=== PATIENT | male | born 1940 | race African-American/Black ===

== ENCOUNTER 2020-09-23 20:20 | Inpatient (IN) | payer OTHER ==
[2020-09-23 23:41] LABS: BASO % 0.3 % (0-2.0); EOS % 0.1 % (0-4.5); HEMATOCRIT 41.5 % (35.4-49); HEMOGLOBIN 13.4 GM/dL (11.7-16.9); LYMPH % 7.2 % (8-40); MCH 20.7 pg (25.7-33.7); MCHC 32.2 g/dl (32.0-35.9); MEAN CELL VOLUME 64.3 fl (80-96); MEAN PLT VOLUME 9.6 fl (7.5-11.1); MONO % 9.8 % (3.8-10.2); NEUT % 82.6 % (42.8-82.8); RBC 6.45 M/mm3 (4.00-5.60); RDW 20.8 % (11.9-15.9); WHITE BLOOD COUNT 7.1 K/mm3 (4.0-10.0)
[2020-09-23 23:43] LABS: VENOUS BASE EXCESS -5.7 mmol/L (-2-2); VENOUS O2 SATURATION 61.1 % (70-80); VENOUS PCO2 36.9 mmHg (38-52); VENOUS PH 7.339 (7.310-7.410)
[2020-09-23 23:49] LABS: INR 1.2 (0.83-1.09); PROTHROMBIN TIME (PATIENT) 14.7 SEC (9.7-13.0)
[2020-09-23 23:52] LABS: ACTIVATED PTT 27.6 SECONDS (25.2-36.5)
[2020-09-24 00:10] LABS: CHLORIDE 103 mmol/L (98-107); POTASSIUM 4.2 mmol/L (3.5-5.1); SODIUM 135 mmol/L (136-145)
[2020-09-24 00:12] LABS: CALCIUM 8.8 mg/dL (8.5-10.1)
[2020-09-24 00:13] LABS: ALBUMIN 3.2 g/dl (3.4-5.0); ANION GAP 11 MMOL/L (8-16); BLOOD UREA NITROGEN 33.7 mg/dL (7-18); CO2 21 mmol/L (21-32); GLUCOSE,RANDOM 162 mg/dL (74-106)
[2020-09-24 00:16] LABS: BILIRUBIN,DIRECT 0.5 mg/dL (0.0-0.2); CREATININE 1.6 mg/dL (0.55-1.3); SGOT/AST 70 U/L (15-37); SGPT/ALT 51 U/L (13-61)
[2020-09-24 00:17] LABS: BILIRUBIN,TOTAL 0.9 mg/dL (0.2-1); LDH 434 U/L (87-246)
[2020-09-24 00:19] LABS: ALK PHOS 112 U/L (45-117)
[2020-09-24] MEDS ORDERED: SODIUM CHLORIDE 0.9% 500 ML INFUS.BAG IV ONE ×2 (00:22→02:32)
[2020-09-24] MEDS ORDERED: DEXAMETHASONE SOD PHOSPHATE 10 MG/1 ML VIAL IVPUSH ONE (00:38)
[2020-09-24 00:43] LABS: ANISOCYTOSIS 2+; MACROCYTOSIS 0; OVALOCYTE 2+; PLATELET ESTIMATE NORMAL
[2020-09-24] MEDS ORDERED: DEXAMETHASONE SOD PHOSPHATE 10 MG/1 ML VIAL ONE (01:09)
[2020-09-24 01:15] LABS: PLATELET COUNT 236 K/MM3 (134-434)
[2020-09-24 03:05] LABS: EPI CELLS 34 /uL (0-25.1); HYALINE CASTS 3 /uL (0-3.1); URINE APPEARANCE CLOUDY; URINE BACTERIA 46 /uL (0-1359); URINE BILIRUBIN 1+ (NEGATIVE); URINE COLOR DK YELLOW; URINE GLUCOSE (UA) NEGATIVE (NEGATIVE); URINE KETONE TRACE (NEGATIVE); URINE LEUK ESTERASE 1+ (NEGATIVE); URINE NITRITE NEGATIVE (NEGATIVE); URINE PROTEIN 2+ (NEGATIVE); URINE RBC 23 /uL (0-23.9); URINE WBC 103 /uL (0-25.8)
[2020-09-24] MEDS ORDERED: AZITHROMYCIN IVPB 500 MG in DEXTROSE 5%-WATER - 250 ML IVPB ONE (09:57)
[2020-09-24] MEDS ORDERED: ACETAMINOPHEN 325 MG TABLET (FP) PO PRN (09:58)
[2020-09-24] MEDS ORDERED: ALBUTEROL SO4 HFA INHALER IH PRN (09:58)
[2020-09-24] MEDS ORDERED: AZITHROMYCIN IVPB 500 MG/250 ML BAG IVPB ONE (10:39)
[2020-09-24] MEDS: ASPIRIN 81 MG CHEWABLE TABLETS PO SCH (11:58)
[2020-09-24] MEDS: POLYETHYLENE GLYCOL 3350 119 GM BTL PO SCH (11:59)
[2020-09-24] MEDS: CHOLECALCIFEROL (VIT D3) 1,000 UNIT (25 MCG) TABLET PO SCH (11:59)
[2020-09-24] MEDS: TAMSULOSIN HCL 0.4 MG CAP PO SCH (11:59)
[2020-09-24] MEDS: PANTOPRAZOLE 40 MG TABLET PO SCH (11:59)
[2020-09-24] MEDS: LOSARTAN POTASSIUM 25 MG TABLET PO SCH (11:59)
[2020-09-24] MEDS: amLODIPine BESYLATE 5 MG TABLET (FP) PO SCH (11:59)
[2020-09-24] MEDS: DEXAMETHASONE SOD PHOSPHATE 4 MG/1 ML VIAL IVPUSH SCH ×2 (11:59→17:02)
[2020-09-24] MEDS: ASCORBIC ACID 500 MG TABLET (FP) PO SCH ×2 (12:00→21:47)
[2020-09-24] MEDS: INSULIN SLIDING SCALE (NOVOLOG) 1 VIAL SQ SCH ×3 (12:30→21:49)
[2020-09-24] MEDS: metFORMIN HCL 500 MG TABLET (FP) PO SCH (17:01)
[2020-09-24] MEDS: ATORVASTATIN CA 20 MG TABLET (FP) PO SCH (21:47)
[2020-09-24] MEDS: DOCUSATE SODIUM 100 MG CAPSULE (FP) PO SCH (21:47)
[2020-09-25] MEDS: DEXAMETHASONE SOD PHOSPHATE 4 MG/1 ML VIAL IVPUSH SCH ×3 (02:34→17:28)
[2020-09-25] MEDS: metFORMIN HCL 500 MG TABLET (FP) PO SCH ×2 (06:41→17:28)
[2020-09-25] MEDS: INSULIN SLIDING SCALE (NOVOLOG) 1 VIAL SQ SCH ×4 (06:41→21:47)
[2020-09-25 09:13] LABS: BASO % 0.2 % (0-2.0); HEMATOCRIT 36.3 % (35.4-49); HEMOGLOBIN 11.8 GM/dL (11.7-16.9); LYMPH % 9.8 % (8-40); MCH 20.7 pg (25.7-33.7); MCHC 32.5 g/dl (32.0-35.9); MEAN CELL VOLUME 63.7 fl (80-96); MEAN PLT VOLUME 9.1 fl (7.5-11.1); MONO % 5.4 % (3.8-10.2); NEUT % 84.6 % (42.8-82.8); PLATELET COUNT 234 K/MM3 (134-434); RDW 21.4 % (11.9-15.9); WHITE BLOOD COUNT 7.2 K/mm3 (4.0-10.0)
[2020-09-25 10:06] LABS: POTASSIUM 4.2 mmol/L (3.5-5.1)
[2020-09-25 10:09] LABS: ALBUMIN 2.7 g/dl (3.4-5.0); BLOOD UREA NITROGEN 38.9 mg/dL (7-18)
[2020-09-25 10:12] LABS: CREATININE 1.3 mg/dL (0.55-1.3)
[2020-09-25 10:13] LABS: BILIRUBIN,TOTAL 0.6 mg/dL (0.2-1)
[2020-09-25 10:14] LABS: TOT PROT 6.6 g/dl (6.4-8.2)
[2020-09-25] MEDS: CHOLECALCIFEROL (VIT D3) 1,000 UNIT (25 MCG) TABLET PO SCH (10:54)
[2020-09-25] MEDS: ASPIRIN 81 MG CHEWABLE TABLETS PO SCH (10:54)
[2020-09-25] MEDS: AZITHROMYCIN IVPB 250 MG in DEXTROSE 5%-WATER - 250 ML IVPB SCH (10:54)
[2020-09-25] MEDS: LOSARTAN POTASSIUM 25 MG TABLET PO SCH (10:55)
[2020-09-25] MEDS: amLODIPine BESYLATE 5 MG TABLET (FP) PO SCH (10:55)
[2020-09-25] MEDS: PANTOPRAZOLE 40 MG TABLET PO SCH (10:55)
[2020-09-25] MEDS: ASCORBIC ACID 500 MG TABLET (FP) PO SCH ×2 (10:55→21:48)
[2020-09-25] MEDS: TAMSULOSIN HCL 0.4 MG CAP PO SCH (10:55)
[2020-09-25] MEDS: POLYETHYLENE GLYCOL 3350 119 GM BTL PO SCH (11:50)
[2020-09-25] MEDS: ENOXAPARIN NA (PORCINE) 60 MG/0.6 ML DISP.SYRIN SQ SCH (21:47)
[2020-09-25] MEDS: ATORVASTATIN CA 20 MG TABLET (FP) PO SCH (21:48)
[2020-09-25] MEDS: DOCUSATE SODIUM 100 MG CAPSULE (FP) PO SCH (21:48)
[2020-09-26] MEDS: DEXAMETHASONE SOD PHOSPHATE 4 MG/1 ML VIAL IVPUSH SCH ×3 (02:49→16:48)
[2020-09-26] MEDS: INSULIN SLIDING SCALE (NOVOLOG) 1 VIAL SQ SCH ×4 (06:23→22:30)
[2020-09-26] MEDS: metFORMIN HCL 500 MG TABLET (FP) PO SCH ×2 (06:23→16:42)
[2020-09-26] MEDS: PANTOPRAZOLE 40 MG TABLET PO SCH (10:16)
[2020-09-26] MEDS: CHOLECALCIFEROL (VIT D3) 1,000 UNIT (25 MCG) TABLET PO SCH (10:16)
[2020-09-26] MEDS: ASCORBIC ACID 500 MG TABLET (FP) PO SCH ×2 (10:16→22:29)
[2020-09-26] MEDS: ASPIRIN 81 MG CHEWABLE TABLETS PO SCH (10:17)
[2020-09-26] MEDS: TAMSULOSIN HCL 0.4 MG CAP PO SCH (10:17)
[2020-09-26] MEDS: ENOXAPARIN NA (PORCINE) 60 MG/0.6 ML DISP.SYRIN SQ SCH ×2 (10:17→22:29)
[2020-09-26] MEDS: AZITHROMYCIN IVPB 250 MG in DEXTROSE 5%-WATER - 250 ML IVPB SCH (10:17)
[2020-09-26] MEDS: POLYETHYLENE GLYCOL 3350 119 GM BTL PO SCH (10:17)
[2020-09-26] MEDS: amLODIPine BESYLATE 5 MG TABLET (FP) PO SCH (10:17)
[2020-09-26] MEDS: LOSARTAN POTASSIUM 25 MG TABLET PO SCH (10:17)
[2020-09-26] MEDS: DOCUSATE SODIUM 100 MG CAPSULE (FP) PO SCH (22:29)
[2020-09-26] MEDS: SENNOSIDES 8.6MG TABLET (FP) PO SCH (22:29)
[2020-09-26] MEDS: ATORVASTATIN CA 20 MG TABLET (FP) PO SCH (22:29)
[2020-09-26] MEDS: AMOX TR/POT CLAV 500MG/125MG TABLETS (FP) PO SCH (22:29)
[2020-09-27] MEDS: DEXAMETHASONE SOD PHOSPHATE 4 MG/1 ML VIAL IVPUSH SCH ×2 (02:48→11:20)
[2020-09-27] MEDS: INSULIN SLIDING SCALE (NOVOLOG) 1 VIAL SQ SCH ×4 (06:37→22:55)
[2020-09-27] MEDS: metFORMIN HCL 500 MG TABLET (FP) PO SCH ×2 (06:37→17:47)
[2020-09-27 10:03] LABS: BASO % 0.2 % (0-2.0); HEMATOCRIT 35.6 % (35.4-49); HEMOGLOBIN 11.5 GM/dL (11.7-16.9); MCH 20.5 pg (25.7-33.7); MCHC 32.1 g/dl (32.0-35.9); MEAN CELL VOLUME 63.8 fl (80-96); MEAN PLT VOLUME 9.3 fl (7.5-11.1); NEUT % 87.8 % (42.8-82.8); PLATELET COUNT 273 K/MM3 (134-434); RBC 5.59 M/mm3 (4.00-5.60); RDW 21.4 % (11.9-15.9); WHITE BLOOD COUNT 8.6 K/mm3 (4.0-10.0)
[2020-09-27] MEDS ORDERED: PT OWN MED DRAWER 7, Y5N ONE ×2 (10:21→17:20)
[2020-09-27 10:22] LABS: POTASSIUM 4.6 mmol/L (3.5-5.1)
[2020-09-27 10:29] LABS: ALBUMIN 2.8 g/dl (3.4-5.0); CALCIUM 8.6 mg/dL (8.5-10.1)
[2020-09-27 10:32] LABS: CREATININE 1.3 mg/dL (0.55-1.3)
[2020-09-27 10:34] LABS: BILIRUBIN,TOTAL 0.8 mg/dL (0.2-1); TOT PROT 6.6 g/dl (6.4-8.2)
[2020-09-27 10:42] LABS: ANISOCYTOSIS 3+; MACROCYTOSIS 0; OVALOCYTE 1+; PLATELET ESTIMATE NORMAL
[2020-09-27] MEDS: AZITHROMYCIN IVPB 250 MG in DEXTROSE 5%-WATER - 250 ML IVPB SCH (11:19)
[2020-09-27] MEDS: SENNOSIDES 8.6MG TABLET (FP) PO SCH ×2 (11:19→22:56)
[2020-09-27] MEDS: POLYETHYLENE GLYCOL 3350 119 GM BTL PO SCH (11:19)
[2020-09-27] MEDS: amLODIPine BESYLATE 5 MG TABLET (FP) PO SCH (11:19)
[2020-09-27] MEDS: PANTOPRAZOLE 40 MG TABLET PO SCH (11:19)
[2020-09-27] MEDS: TAMSULOSIN HCL 0.4 MG CAP PO SCH (11:19)
[2020-09-27] MEDS: ASCORBIC ACID 500 MG TABLET (FP) PO SCH ×2 (11:19→22:56)
[2020-09-27] MEDS: CHOLECALCIFEROL (VIT D3) 1,000 UNIT (25 MCG) TABLET PO SCH (11:19)
[2020-09-27] MEDS: ENOXAPARIN NA (PORCINE) 60 MG/0.6 ML DISP.SYRIN SQ SCH ×2 (11:20→22:51)
[2020-09-27] MEDS: AMOX TR/POT CLAV 500MG/125MG TABLETS (FP) PO SCH ×3 (11:20→19:54)
[2020-09-27] MEDS: ASPIRIN 81 MG CHEWABLE TABLETS PO SCH (11:20)
[2020-09-27] MEDS: LOSARTAN POTASSIUM 25 MG TABLET PO SCH (11:20)
[2020-09-27 15:34] VITALS: BMI 21.5
[2020-09-27] MEDS: DOCUSATE SODIUM 100 MG CAPSULE (FP) PO SCH (22:55)
[2020-09-27] MEDS: ATORVASTATIN CA 20 MG TABLET (FP) PO SCH (22:55)
[2020-09-28] MEDS: DEXAMETHASONE SOD PHOSPHATE 4 MG/1 ML VIAL IVPUSH SCH ×3 (02:30→18:11)
[2020-09-28] MEDS: INSULIN SLIDING SCALE (NOVOLOG) 1 VIAL SQ SCH ×4 (06:41→21:48)
[2020-09-28] MEDS: metFORMIN HCL 500 MG TABLET (FP) PO SCH ×2 (06:42→16:05)
[2020-09-28] MEDS ORDERED: PT OWN MED DRAWER 7, Y5N ONE ×2 (10:49→18:09)
[2020-09-28] MEDS: LOSARTAN POTASSIUM 25 MG TABLET PO SCH (10:59)
[2020-09-28] MEDS: ASPIRIN 81 MG CHEWABLE TABLETS PO SCH (10:59)
[2020-09-28] MEDS: amLODIPine BESYLATE 5 MG TABLET (FP) PO SCH (11:02)
[2020-09-28] MEDS: PANTOPRAZOLE 40 MG TABLET PO SCH (11:02)
[2020-09-28] MEDS: SENNOSIDES 8.6MG TABLET (FP) PO SCH ×2 (11:03→21:33)
[2020-09-28] MEDS: TAMSULOSIN HCL 0.4 MG CAP PO SCH (11:03)
[2020-09-28] MEDS: ASCORBIC ACID 500 MG TABLET (FP) PO SCH ×2 (11:03→21:33)
[2020-09-28] MEDS: ENOXAPARIN NA (PORCINE) 60 MG/0.6 ML DISP.SYRIN SQ SCH ×2 (11:03→21:32)
[2020-09-28] MEDS: AMOX TR/POT CLAV 500MG/125MG TABLETS (FP) PO SCH ×2 (11:06→18:14)
[2020-09-28] MEDS: CHOLECALCIFEROL (VIT D3) 1,000 UNIT (25 MCG) TABLET PO SCH (11:25)
[2020-09-28] MEDS ORDERED: INSULIN (NOVOLOG) ASPART 100 UNITS/ML 10ML VIAL ONE (11:30)
[2020-09-28] MEDS: POLYETHYLENE GLYCOL 3350 119 GM BTL PO SCH (11:57)
[2020-09-28] MEDS: AZITHROMYCIN IVPB 250 MG in DEXTROSE 5%-WATER - 250 ML IVPB SCH (12:18)
[2020-09-28] MEDS: DOCUSATE SODIUM 100 MG CAPSULE (FP) PO SCH (21:32)
[2020-09-28] MEDS: ATORVASTATIN CA 20 MG TABLET (FP) PO SCH (21:33)
[2020-09-28 23:11] VITALS: TEMP 97.4
[2020-09-29] MEDS: DEXAMETHASONE SOD PHOSPHATE 4 MG/1 ML VIAL IVPUSH SCH ×2 (02:00→10:02)
[2020-09-29] MEDS: metFORMIN HCL 500 MG TABLET (FP) PO SCH (06:44)
[2020-09-29] MEDS: INSULIN SLIDING SCALE (NOVOLOG) 1 VIAL SQ SCH (06:44)
[2020-09-29] MEDS ORDERED: PT OWN MED DRAWER 7, Y5N ONE ×2 (08:22→11:29)
[2020-09-29 08:43] LABS: BASO % 0.5 % (0-2.0); EOS % 0.6 % (0-4.5); HEMATOCRIT 36.2 % (35.4-49); HEMOGLOBIN 11.6 GM/dL (11.7-16.9); LYMPH % 11.4 % (8-40); MCH 20.4 pg (25.7-33.7); MCHC 32.1 g/dl (32.0-35.9); MEAN CELL VOLUME 63.6 fl (80-96); MEAN PLT VOLUME 9.1 fl (7.5-11.1); MONO % 3.9 % (3.8-10.2); NEUT % 83.6 % (42.8-82.8); RBC 5.69 M/mm3 (4.00-5.60)
[2020-09-29] MEDS: AMOX TR/POT CLAV 500MG/125MG TABLETS (FP) PO SCH (08:45)
[2020-09-29 09:16] LABS: POTASSIUM 4.5 mmol/L (3.5-5.1)
[2020-09-29 09:26] LABS: CALCIUM 8.8 mg/dL (8.5-10.1)
[2020-09-29 09:27] LABS: BLOOD UREA NITROGEN 26.8 mg/dL (7-18)
[2020-09-29 09:30] LABS: CREATININE 1.2 mg/dL (0.55-1.3)
[2020-09-29 09:31] LABS: BILIRUBIN,TOTAL 0.5 mg/dL (0.2-1); TOT PROT 6.8 g/dl (6.4-8.2)
[2020-09-29] MEDS: ENOXAPARIN NA (PORCINE) 60 MG/0.6 ML DISP.SYRIN SQ SCH (10:02)
[2020-09-29] MEDS: LOSARTAN POTASSIUM 25 MG TABLET PO SCH (10:04)
[2020-09-29] MEDS: CHOLECALCIFEROL (VIT D3) 1,000 UNIT (25 MCG) TABLET PO SCH (10:04)
[2020-09-29] MEDS: PANTOPRAZOLE 40 MG TABLET PO SCH (10:04)
[2020-09-29] MEDS: ASCORBIC ACID 500 MG TABLET (FP) PO SCH (10:04)
[2020-09-29] MEDS: TAMSULOSIN HCL 0.4 MG CAP PO SCH (10:05)
[2020-09-29] MEDS: POLYETHYLENE GLYCOL 3350 119 GM BTL PO SCH (10:05)
[2020-09-29] MEDS: ASPIRIN 81 MG CHEWABLE TABLETS PO SCH (10:05)
[2020-09-29] MEDS: amLODIPine BESYLATE 5 MG TABLET (FP) PO SCH (10:05)
[2020-09-29] MEDS: SENNOSIDES 8.6MG TABLET (FP) PO SCH (10:05)
[2020-09-29 10:09] LABS: PLATELET COUNT 292 K/MM3 (134-434)
[2020-09-29 11:49] LABS: ANISOCYTOSIS 1+; MACROCYTOSIS 0; PLATELET ESTIMATE NORMAL
[2020-09-29 12:07] VITALS: BP 138/72; PULSE 100
== END 2020-09-29 13:02 | disposition home or self-care (01) | DRG 178 ==
LOC: JER 20:20 → JERBED 09-24 03:34 → J6S 09-24 09:46
PROVIDERS: ADMIT Internal Medicine; ATTEND Internal Medicine
DX: U07.1 COVID-19 (principal); N17.9 Acute kidney failure, unspecified; N39.0 Urinary tract infection, site not specified; I10 Essential (primary) hypertension; E78.5 Hyperlipidemia, unspecified; E11.9 Type 2 diabetes mellitus without complications; N40.0 Benign prostatic hyperplasia without lower urinary tract symptoms; Z87.891 Personal history of nicotine dependence
CPT/HCPCS: 36415; 71045-TC-FY; 80053; 81003; 82248; 82550; 82728; 82803; 82962; 83605; 83615; 83880; 84484; 85025; 85379; 85610; 85730; 86140; 87040; 87086; 87186; 87804; 93005; 93010; 94761; 97116-GP; 97161-GP; 99285-25; C9803; J1100; U0003

== ENCOUNTER 2021-06-30 10:42 | Emergency (ER) | payer OTHER ==
[2021-06-30 10:50] VITALS: PULSE 44; TEMP 97.8; BMI 23.7
[2021-06-30 11:43] LABS: HEMOGLOBIN 12.4 GM/dL (11.7-16.9); MCH 20.6 pg (25.7-33.7); MCHC 31.8 g/dl (32.0-35.9); MEAN CELL VOLUME 64.9 fl (80-96); MEAN PLT VOLUME 8.8 fl (7.5-11.1); PLATELET COUNT 144 10^3/uL (134-434); RBC 6.01 M/mm3 (4.00-5.60); RDW 18.9 % (11.9-15.9); WHITE BLOOD COUNT 8.9 K/mm3 (4.0-10.0)
[2021-06-30 11:49] LABS: INR 1.19 (0.83-1.09); PROTHROMBIN TIME (PATIENT) 13.4 SEC (9.7-13.0)
[2021-06-30 12:06] LABS: CHLORIDE 110 mmol/L (98-107); SODIUM 142 mmol/L (136-145)
[2021-06-30 12:08] LABS: ALBUMIN 3.6 g/dl (3.4-5.0); CALCIUM 8.6 mg/dL (8.5-10.1)
[2021-06-30 12:09] LABS: ANION GAP 8 MMOL/L (8-16); BLOOD UREA NITROGEN 25.8 mg/dL (7-18); CO2 24 mmol/L (21-32); GLUCOSE,RANDOM 222 mg/dL (74-106)
[2021-06-30 12:12] LABS: SGOT/AST 32 U/L (15-37)
[2021-06-30 12:13] LABS: BILIRUBIN,TOTAL 0.6 mg/dL (0.2-1); TOT PROT 7.2 g/dl (6.4-8.2)
[2021-06-30 12:14] LABS: ALK PHOS 71 U/L (45-117); SGPT/ALT 39 U/L (13-61)
[2021-06-30 12:17] VITALS: BP 161/54
[2021-06-30 12:35] LABS: ANISOCYTOSIS 2+; OVALOCYTE 0; PLATELET ESTIMATE DECREASED
== END 2021-06-30 12:53 | disposition short-term general hospital (02) ==
LOC: JER 10:42
DX: I44.30 Unspecified atrioventricular block (principal)
CPT/HCPCS: 36415; 71045-TC-FY; 80053; 82550; 82553; 83880; 84484; 85025; 85610; 93005; 93010; 99285-25; C9803; U0003; U0005